=== PATIENT | male | born 2000 | race African-American/Black ===

== ENCOUNTER 2023-08-11 14:51 | Emergency (ER) | payer BC, OTHER ==
[2023-08-11 15:15] VITALS: BP 114/66; PULSE 60; RESP 16; TEMP 98.2; BMI 21.2
[2023-08-11 16:47] LABS: BASO % 0.8 % (0-2.0); EOS % 4.7 % (0-4.5); HEMATOCRIT 41.7 % (35.4-49); LYMPH % 50.5 % (8-40); MCH 30.4 pg (25.7-33.7); MCHC 33.6 g/dl (32.0-35.9); MEAN CELL VOLUME 90.2 fl (80-96); MEAN PLT VOLUME 7.5 fl (7.5-11.1); PLATELET COUNT 225 10^3/uL (134-434); RBC 4.62 M/mm3 (4.00-5.60); WHITE BLOOD COUNT 4.4 K/mm3 (4.0-10.0)
[2023-08-11 17:15] LABS: POTASSIUM 3.9 mmol/L (3.5-5.1)
[2023-08-11 17:19] LABS: CALCIUM 9.4 mg/dL (8.5-10.1)
[2023-08-11 17:20] LABS: ALBUMIN 4.5 g/dl (3.4-5.0); BLOOD UREA NITROGEN 10.7 mg/dL (7-18)
[2023-08-11 17:25] LABS: BILIRUBIN,TOTAL 1.5 mg/dL (0.2-1); TOT PROT 7.4 g/dl (6.4-8.2)
== END 2023-08-11 18:34 | disposition home or self-care (01) ==
LOC: JER 14:51
DX: F99 Mental disorder, not otherwise specified (principal)
CPT/HCPCS: 36415; 80053; 80307; 82550; 82553; 85025; 93005; 93010; 99284-25